=== PATIENT | female | born 1945 | race Caucasian/White ===

== ENCOUNTER 2017-08-21 21:39 | Emergency (ER) | payer MEDICARE ==
--- NOTE | 2017-08-22 00:02 | RAD ---
CHEST TWO VIEWS: History: Injury. Comparison: 11-16-15 FINDINGS: Lungs are clear. There is linear atelectasis in the left lung base. No pneumothorax or effusion. Mild levoscoliosis lumbar spine. Cardiac silhouette and mediastinal contours are similar. IMPRESSION: No acute intrathoracic abnormality. POS: [facility]
[2017-08-22] MEDS ORDERED: Ibuprofen 200 MG TAB ONE (00:04)
--- NOTE | 2017-08-22 00:04 | RAD ---
LEFT RIBS: History: Tripped and fell. Comparison: None. FINDINGS: Linear atelectasis left lung base. No displaced rib fracture. IMPRESSION: No displaced left sided rib fracture. POS: [facility]
[2017-08-22] MEDS ORDERED: HYDROcodone/Acetaminophen 5/325 mg Tablet ONE (00:53)
== END 2017-08-22 00:55 | disposition home or self-care (01) ==
LOC: SCSER 21:39
DX: S20.02XA Contusion of left breast, initial encounter (principal); Z79.899 Other long term (current) drug therapy; W01.0XXA Fall on same level from slipping, tripping and stumbling without subsequent striking against object, initial encounter; Y93.01 Activity, walking, marching and hiking
CPT/HCPCS: 71020

== ENCOUNTER 2018-02-15 15:06 | Emergency (ER) | payer MEDICARE ==
[2018-02-15 15:52] LABS: #Eosinphils 0.2 thou/uL (0.0-0.7); #Lymphocytes 2.1 thou/uL (1.20-3.40); #Monocytes 0.7 thou/uL (0.11-0.59); %Basophils 0.8 % (0.0-1.0); %Eosinophils 3.9 % (0.0-10.0); %Lymphocytes 34.4 % (21.0-51.0); %Monocytes 11.8 % (0.0-10.0); %Neutrophils 49.1 % (42.0-75.0); Hemoglobin 14.5 g/dL (12.0-16.0); Mean Corpuscular HGB CONC 33.7 g/dL (32.0-36.0); Mean Corpuscular Hemoglobin 32.5 pg (27.0-31.0); Mean Corpuscular Volume 96.5 fl (81.0-99.0); Mean Platelet Volume 6.7 fL (7.4-10.4); Platelet Count 302 thou/uL (130-400); RBC Distribution Width 11.7 % (11.5-14.5); Red Blood Cell (RBC) Count 4.47 mill/uL (4.20-5.40); White Blood Cell (WBC) Count 6.1 thou/uL (4.8-10.8)
--- NOTE | 2018-02-15 15:53 | RAD ---
FRONTAL VIEW CHEST: Indication: Chest pain. Comparison: 08-21-17 FINDINGS: There is vague rounded density at the inferior right chest which may relate to eventration of the rig ht hemidiaphragm versus diaphragmatic hernia. Lungs are mildly hyperinflated. There is no lobar conso lidation, effusion, or discrete pneumothorax. Cardiac silhouette is within normal limits of size for portable technique. There is vascular calcification. IMPRESSION: 1. No focal consolidation. 2. Additional details as above. POS: [facility]
[2018-02-15 16:09] LABS: Anion Gap 14 mmol/L (10-20); BUN (Urea Nitrogen) 22 mg/dL (9.8-20.1); Calc. Creatinine Clearance 0 mL/min (70-130); Calcium 9.4 mg/dL (7.8-10.44); Carbon Dioxide 24 mmol/L (23-31); Chloride 106 mmol/L (98-107); Estimated GFR-MDRD 66; Glucose 105 mg/dL (80-115); Sodium 140 mmol/L (136-145)
[2018-02-15 16:12] LABS: CKMB 1.5 ng/mL (0-6.6); Troponin I Less than 0.010 ng/mL (< 0.028)
== END 2018-02-15 16:34 | disposition home or self-care (01) ==
LOC: SCSER 15:06
DX: R07.9 Chest pain, unspecified (principal); J44.9 Chronic obstructive pulmonary disease, unspecified; Z79.899 Other long term (current) drug therapy
CPT/HCPCS: 71045; 80048; 82553; 84484; 85025; 93005

== ENCOUNTER 2018-04-18 12:57 | Outpatient (CLI) | payer MEDICARE ==
--- NOTE | 2018-04-18 13:25 | RAD ---
PA AND LATERAL CHEST: Date: 04/18/18 HISTORY: Dyspnea. COMPARISON: 04/05/17. FINDINGS: Lungs are hyperexpanded with flattening to the hemidiaphragms consistent with COPD. No infiltrative p rocess or pulmonary nodules. Atherosclerotic changes are seen in the aorta. Heart size within normal limits. IMPRESSION: Stable COPD change. POS: [facility]
== END 2018-04-18 12:58 | disposition home or self-care (01) ==
LOC: RAD 12:57
PROVIDERS: ATTEND Internal Medicine Pulmonary Disease
DX: R06.00 Dyspnea, unspecified (principal); J44.9 Chronic obstructive pulmonary disease, unspecified
CPT/HCPCS: 71046

== ENCOUNTER 2018-08-11 15:50 | Emergency (ER) | payer MEDICARE ==
[2018-08-11 17:27] LABS: #Eosinphils 0.1 thou/uL (0.0-0.7); #Lymphocytes 0.7 thou/uL (1.20-3.40); #Monocytes 0.9 thou/uL (0.11-0.59); #Neutrophils 5.1 thou/uL (1.40-6.50); %Basophils 0.7 % (0.0-1.0); %Lymphocytes 10.6 % (21.0-51.0); %Monocytes 13.4 % (0.0-10.0); %Neutrophils 73.3 % (42.0-75.0); Hemoglobin 14.4 g/dL (12.0-16.0); Mean Corpuscular HGB CONC 32.4 g/dL (32.0-36.0); Mean Corpuscular Hemoglobin 30.9 pg (27.0-31.0); Mean Corpuscular Volume 95.4 fL (78.0-98.0); Mean Platelet Volume 6.5 fL (7.4-10.4); Platelet Count 242 thou/uL (130-400); RBC Distribution Width 12.3 % (11.5-14.5); Red Blood Cell (RBC) Count 4.66 mill/uL (4.20-5.40)
--- NOTE | 2018-08-11 17:31 | RAD ---
TWO VIEWS CHEST: 08/11/18 COMPARISON: 08/21/17. HISTORY: Difficulty breathing, wheezing, COPD, emphysema. FINDINGS: There is increased linear interstitial density with pulmonary hyperinflation consistent with air trap ping. These findings are consistent with the provided history of COPD. There is atherosclerotic calc ification in the aortic arch. No pneumothorax, pleural fluid, focal consolidation, or alveolar edema. IMPRESSION: Chronic findings as detailed above. No lobar consolidation or alveolar edema. POS: [facility]
[2018-08-11] MEDS ORDERED: Sodium Chloride For Inhalation 0.9% 3 ML NEB ONE (17:43)
[2018-08-11 17:44] LABS: ALT (SGPT) 26 U/L (8-55); AST (SGOT) 36 U/L (5-34); Albumin 4.2 g/dL (3.4-4.8); Alkaline Phosphatase 71 U/L (40-150); Anion Gap 13 mmol/L (10-20); BUN (Urea Nitrogen) 10 mg/dL (9.8-20.1); Bilirubin, Total 0.4 mg/dL (0.2-1.2); Calc. Creatinine Clearance 0 mL/min (70-130); Calcium 9.6 mg/dL (7.8-10.44); Carbon Dioxide 24 mmol/L (23-31); Chloride 106 mmol/L (98-107); Estimated GFR-MDRD 74; Globulin 2.6 g/dL (2.4-3.5); Glucose 105 mg/dL (80-115); Protein, Total 6.8 g/dL (6.0-8.3); Sodium 139 mmol/L (136-145)
[2018-08-11 17:45] LABS: CKMB 1.5 ng/mL (0-6.6); Troponin I Less than 0.010 ng/mL (< 0.028)
[2018-08-11] MEDS ORDERED: Sterile Water 10 ML ONE (17:52)
== END 2018-08-11 19:11 | disposition home or self-care (01) ==
LOC: SCSER 15:50
DX: J44.1 Chronic obstructive pulmonary disease with (acute) exacerbation (principal); Z79.899 Other long term (current) drug therapy
CPT/HCPCS: 71046; 80053; 82553; 83880; 84484; 85025; 87804; 93005; 94640; A4216; J2920; J7620

== ENCOUNTER 2018-12-12 09:59 | Outpatient (CLI) | payer MEDICARE ==
--- NOTE | 2018-12-26 18:25 | MMO ---
Bilateral MAMMO Bilat Screen [facility]DI. CLINICAL HISTORY: Patient is 73 years old and is seen for screening. The patient has no family history of breast cancer. The patient has no personal history of cancer. VIEWS: The views performed were: bilateral craniocaudal and bilateral mediolateral oblique. FILMS COMPARED: The present examination has been compared to prior imaging studies performed at [facility] on 05/02/2012, 08/06/2013, 01/14/2016 and 11/24/2017. This study has been interpreted with the assistance of computer-aided detection. MAMMOGRAM FINDINGS: There are scattered fibroglandular densities. There are no suspicious masses, suspicious calcifications, or new areas of architectural distortion. IMPRESSION: THERE IS NO MAMMOGRAPHIC EVIDENCE OF MALIGNANCY. A ROUTINE FOLLOW-UP MAMMOGRAM IN 1 YEAR IS RECOMMENDED. ACR BI-RADS Category 1 - Negative MAMMOGRAPHY NOTE: 1. A negative mammogram report should not delay a biopsy if a dominant of clinically suspicious mass is present. 2. Approximately 10% to 15% of breast cancers are not detected by mammography. 3. Adenosis and dense breasts may obscure an underlying neoplasm.
== END 2018-12-12 10:00 | disposition home or self-care (01) ==
LOC: SCSMAMMO 09:59
PROVIDERS: ATTEND Family Medicine
DX: Z12.31 Encounter for screening mammogram for malignant neoplasm of breast (principal)
CPT/HCPCS: 77067

== ENCOUNTER 2018-12-12 10:01 | Outpatient (CLI) | payer MEDICARE ==
--- NOTE | 2018-12-12 11:34 | ULT ---
THYROID ULTRASOUND: Date: 12-12-18 Comparison: None. History: Abnormal thyroid function test. Technique: Multiplanar grayscale sonographic imaging of the thyroid gland obtained. FINDINGS: Thyroid isthmus measures 2 mm in AP dimension. Right lobe measures 2.2 x 1.2 x 0.7 cm and left lobe m easures 3.3 x 2.0 x 1.6 cm. There is no nodule noted in the thyroid isthmus or the right lobe of the thyroid gland. There is a dominant solid heterogeneously hypoechoic nodule with internal calcifications within the l eft lobe of the thyroid gland measuring at least 3.0 x 2.0 x 1.5 cm. IMPRESSION: TIRADS 5 lesion of left lobe of thyroid gland. Highly suspicious: fine needle aspiration advised. Code T
== END 2018-12-12 10:02 | disposition home or self-care (01) ==
LOC: SCSULT 10:01
PROVIDERS: ATTEND Family Medicine
DX: R94.6 Abnormal results of thyroid function studies (principal); E07.9 Disorder of thyroid, unspecified
CPT/HCPCS: 76536

== ENCOUNTER 2018-12-18 12:23 | Day surgery (SDC) | payer MEDICARE ==
[2018-12-17 11:55] VITALS: BMI 24.3
[2018-12-18] MEDS ORDERED: Sodium Bicarbonate 2.5 MEQ/5 ML VIAL ONE (12:31)
[2018-12-18] MEDS ORDERED: Lidocaine 1% PF 5 ML VIAL ONE (12:31)
--- NOTE | 2018-12-18 14:03 | ULT ---
FUltrasound-guided fine needle aspiration thyroid biopsy: HISTORY: TI-RADS Category 5 solitary left lobe thyroid nodule in 72-year-old female. TECHNIQUE: Signed informed consent obtained. Standard sterile technique used. The skin of the left anterior neck was prepped and draped in usual sterile fashion. 25-gauge needle was used applied buffered lidocaine superficially and deeply under ultrasound guidance. Another 25-gauge needle mounted on a 5 mL syring e was used to aspirate the contents of the dominant left thyroid nodule from anterolateral approach, and this was given to clinical laboratory scientist from pathology. Using separate 25-gauge needles and separ ate syringes, an additional 3 passes were made and given to the senior wind turbine technician. Patient tolerated the pro cedure well. No complications. IMPRESSION: Technically successful 25-gauge fine needle aspiration biopsy of the left thyroid nodule x4
[2018-12-18 14:13] VITALS: BP 122/65; TEMP 97.8
== END 2018-12-18 13:40 | disposition home or self-care (01) ==
LOC: ULT 12:23
PROVIDERS: ATTEND Family Medicine
PROC: 0GBG3ZX Excision of Left Thyroid Gland Lobe, Percutaneous Approach, Diagnostic (ICD-10-PCS; principal; 2018-12-18)
DX: E04.1 Nontoxic single thyroid nodule (principal); J44.9 Chronic obstructive pulmonary disease, unspecified; E78.00 Pure hypercholesterolemia, unspecified; Z87.891 Personal history of nicotine dependence; Z79.899 Other long term (current) drug therapy; Z88.0 Allergy status to penicillin; Z88.8 Allergy status to other drugs, medicaments and biological substances
CPT/HCPCS: 60100; 76942; 88173; 88305; J2001

== ENCOUNTER 2019-08-09 10:01 | Outpatient (CLI) | payer MEDICARE ==
--- NOTE | 2019-08-09 11:30 | ULT ---
Thyroid sonogram HISTORY: Thyroid mass. Koko thyroiditis. Follow-up. COMPARISON: 12/12/2018. FINDINGS: Right thyroid gland is 3.2 cm length with a normal appearance. Isthmus is 0.2 cm with a nor mal appearance. Left thyroid lobe measures up to 3.4 cm. The heterogeneous lobular mixed echogenicity well-circumscri bed mass with internal calcification measures 2.8 cm but 1.9 cm x 1.6 cm greatest diameters on today's exam (previously 3.0 x 2.0 x 1.5 cm greatest diameters). No new masses are apparent. IMPRESSION: Stable sonographic appearance of the dominant left thyroid lobe mass. No new abnormalitie s are apparent.
== END 2019-08-09 10:02 | disposition home or self-care (01) ==
LOC: SCSULT 10:01
PROVIDERS: ATTEND Otolaryngology Plastic Surgery within the Head & Neck
DX: E04.1 Nontoxic single thyroid nodule (principal)
CPT/HCPCS: 76536

== ENCOUNTER 2020-11-02 11:14 | Outpatient (CLI) | payer MEDICARE ==
--- NOTE | 2020-11-02 11:31 | RAD ---
XR Chest Pa Lat STANDARD History: Dyspnea Comparison: Radiograph September 05, 2020 Findings: Lungs are clear. No pneumothorax. No effusion. No airspace consolidation. Cardiac silhouette and mediastinal contours appear within normal limits. Mildly distended pulmonary v essels. Impression: No acute intrathoracic abnormality.
== END 2020-11-02 11:15 | disposition home or self-care (01) ==
LOC: BICRAD 11:14
PROVIDERS: ATTEND Internal Medicine Pulmonary Disease
DX: R06.00 Dyspnea, unspecified (principal)
CPT/HCPCS: 71046

== ENCOUNTER 2020-12-14 08:33 | Observation (INO) | payer MEDICARE ==
[2020-12-10 12:48] VITALS: BMI 24.7
[2020-12-14] MEDS ORDERED: Fentanyl 100 MCG/2 ML VIAL ONE (11:24)
[2020-12-14] MEDS ORDERED: Lidocaine 1% (PF) 30 ML VIAL ONE (11:25)
[2020-12-14] MEDS ORDERED: Heparin 10,000 UNITS/ 10 ML VIAL ONE ×2 (11:25→12:27)
[2020-12-14] MEDS ORDERED: Rocuronium Bromide 10 MG/ML (10ML VIAL) ONE (11:50)
[2020-12-14] MEDS ORDERED: Dexamethasone 20 MG/5 ML VIAL ONE (11:50)
[2020-12-14] MEDS ORDERED: Lidocaine 1% PF 5 ML VIAL ONE (11:50)
[2020-12-14] MEDS ORDERED: Glycopyrrolate 0.2 MG/ML 5 ML SYRINGE ONE (11:50)
[2020-12-14] MEDS ORDERED: PROPOFOL 200 MG/20 ML VIAL ONE (11:50)
[2020-12-14] MEDS ORDERED: Ondansetron PF 4 MG/2 ML Vial ONE (11:50)
[2020-12-14] MEDS ORDERED: PHENYLEPHRINE-NS 100 MCG/ML 10 ML SYRINGE ONE (11:50)
[2020-12-14] MEDS ORDERED: Ropivacaine 0.5% HCl/PF (150 MG/30 ML VIAL) ONE (11:50)
[2020-12-14] MEDS ORDERED: Isoproterenol 0.2 MG/1 ML AMP ONE (14:04)
[2020-12-14] MEDS ORDERED: Heparin 25,000 units/D5W 500 ML ONE (14:04)
[2020-12-14] MEDS ORDERED: Protamine Sulfate 50 MG/5 ML VIAL ONE (14:40)
[2020-12-14] MEDS ORDERED: Promethazine HCl 25 MG/ML VIAL SLOW IVP PRN (15:11)
[2020-12-14] MEDS ORDERED: Meperidine HCl/PF 25 MG/ML VIAL SLOW IVP PRN (15:11)
[2020-12-14] MEDS ORDERED: Ondansetron HCl/PF 4 MG/2 ML Vial IVP PRN (15:11)
[2020-12-14] MEDS ORDERED: Promethazine HCl 25 MG/ML VIAL IM PRN (15:11)
[2020-12-14] MEDS ORDERED: Albuterol Sulfate 2.5 mg/3 ml Neb NEB PRN (15:52)
[2020-12-14] MEDS ORDERED: Ketorolac Tromethamine 30 MG/ML VIAL IVP PRN ×2 (15:55→16:01)
[2020-12-14] MEDS ORDERED: Acetaminophen/Codeine 30-300mg Tablet PO PRN ×2 (16:00→16:01)
[2020-12-14] MEDS ORDERED: Promethazine HCl 25 MG/ML VIAL ONE (16:46)
[2020-12-14] MEDS ORDERED: Cepastat Lozenges 1 LOZ PO PRN (18:31)
[2020-12-14] MEDS: Apixaban 5 MG TAB PO SCH (22:09)
[2020-12-14] MEDS ORDERED: Ondansetron PF 4 MG/2 ML Vial IVP PRN (23:06)
[2020-12-15] MEDS: Acetaminophen 325 MG TAB PO PRN ×2 (00:02→08:06)
[2020-12-15] MEDS: Mometasone 200 MCG/Formoterol 5 MCG 120 PUFF INHALER INH SCH ×2 (00:34→06:25)
[2020-12-15] MEDS: Sucralfate 1 GM TAB PO SCH ×2 (06:57)
[2020-12-15] MEDS: Apixaban 5 MG TAB PO SCH (08:04)
[2020-12-15 08:24] VITALS: BP 107/56; TEMP 97.7
[2020-12-15] MEDS ORDERED: Cyanocobalamin (Vitamin B-12) 1,000 MCG TAB PO SCH (09:00)
[2020-12-15] MEDS ORDERED: Metoprolol Tartrate 25 MG TAB PO SCH (09:00)
[2020-12-15] MEDS ORDERED: Multivit, Therapeutic 1 TAB PO SCH (09:00)
[2020-12-15] MEDS ORDERED: Ascorbic Acid 500 mg Chewable Tablet PO SCH (09:00)
[2020-12-15] MEDS ORDERED: Calcium Carbonate 600 MG + Vit D TAB PO SCH (09:00)
== END 2020-12-15 10:20 | disposition home or self-care (01) ==
LOC: CCL 08:33 → 2SW 19:00
PROVIDERS: ADMIT Internal Medicine Cardiovascular Disease; ATTEND Internal Medicine Cardiovascular Disease
PROC: 02583ZZ Destruction of Conduction Mechanism, Percutaneous Approach (ICD-10-PCS; principal; 2020-12-14)
PROC: 4A023FZ Measurement of Cardiac Rhythm, Percutaneous Approach (ICD-10-PCS; 2020-12-14)
PROC: 4A0234Z Measurement of Cardiac Electrical Activity, Percutaneous Approach (ICD-10-PCS; 2020-12-14)
PROC: 02K83ZZ Map Conduction Mechanism, Percutaneous Approach (ICD-10-PCS; 2020-12-14)
DX: I48.0 Paroxysmal atrial fibrillation (principal); I48.92 Unspecified atrial flutter; I49.5 Sick sinus syndrome; J43.9 Emphysema, unspecified; E78.00 Pure hypercholesterolemia, unspecified; Z87.891 Personal history of nicotine dependence; Z79.01 Long term (current) use of anticoagulants; Z79.899 Other long term (current) drug therapy; Z88.0 Allergy status to penicillin; Z88.8 Allergy status to other drugs, medicaments and biological substances
CPT/HCPCS: 76942; 85347 ×2; 93005; 93613; 93622; 93623; 93656; 93657; 93662; C1732 ×3; C1759; G0378 ×2; 93010; J1100; J1644; J2001; J2405; J2550; J2704; J2720; J2795; J3010

== ENCOUNTER 2021-07-16 09:09 | Outpatient (CLI) | payer MEDICARE ==
[2021-07-16 10:35] LABS: Hemoglobin 14.3 g/dL (12.0-15.5); Mean Corpuscular HGB CONC 32.5 g/dL (32.0-36.0); Mean Corpuscular Hemoglobin 32.5 pg (27.0-33.0); Mean Platelet Volume 8.9 fl (7.4-10.4); Platelet Count 326 10x3/uL (150-450); RBC Distribution Width 12.8 % (11.5-14.5); White Blood Cell (WBC) Count 4.9 10x3/uL (3.5-10.5)
[2021-07-16 11:10] LABS: Anion Gap 13 mmol/L (10-20); BUN (Urea Nitrogen) 10 mg/dL (9.8-20.1); Calc. Creatinine Clearance 0 mL/min (70-130); Calcium 9.1 mg/dL (7.8-10.44); Carbon Dioxide 27 mmol/L (23-31); Chloride 105 mmol/L (98-107); Glucose 88 mg/dL (83-110); Potassium 4.5 mmol/L (3.5-5.1); Sodium 140 mmol/L (136-145)
[2021-07-16 11:23] LABS: INR-International Normal Ratio 0.9; PTT 27.9 sec (22.0-33.0); Prothrombin Time 10.3 sec (9.5-12.1)
[2021-07-16 21:10] LABS: SARS-CoV-2 PCR by NAA Not Detected (NotDetected)
== END 2021-07-16 09:10 | disposition home or self-care (01) ==
LOC: LABBT 09:09
PROVIDERS: ATTEND Internal Medicine Cardiovascular Disease
DX: Z01.812 Encounter for preprocedural laboratory examination (principal); Z20.822 Contact with and (suspected) exposure to COVID-19
CPT/HCPCS: 80048; 85027; 85610; 85730; U0003; U0005

== ENCOUNTER 2021-07-21 07:36 | Day surgery (SDC) | payer MEDICARE ==
[2021-07-19 14:10] VITALS: BMI 25.0
[2021-07-21] MEDS ORDERED: Heparin 25,000 units/D5W 500 ML ONE (09:26)
[2021-07-21] MEDS ORDERED: Heparin 10,000 UNITS/ 10 ML VIAL ONE (09:26)
[2021-07-21] MEDS ORDERED: Fentanyl 100 MCG/2 ML VIAL ONE (09:28)
[2021-07-21] MEDS ORDERED: Isoproterenol 0.2 MG/1 ML AMP ONE (09:28)
[2021-07-21] MEDS ORDERED: Glycopyrrolate 0.2 MG/ML 5 ML SYRINGE ONE (10:02)
[2021-07-21] MEDS ORDERED: PHENYLEPHRINE-NS 100 MCG/ML 10 ML SYRINGE ONE (10:02)
[2021-07-21] MEDS ORDERED: Dexamethasone 20 MG/5 ML VIAL ONE (10:02)
[2021-07-21] MEDS ORDERED: Ondansetron PF 4 MG/2 ML Vial ONE ×2 (10:02→14:05)
[2021-07-21] MEDS ORDERED: Lidocaine 1% PF 5 ML VIAL ONE (10:02)
[2021-07-21] MEDS ORDERED: Ketorolac Tromethamine 30 MG/ML VIAL ONE ×2 (10:02→15:34)
[2021-07-21] MEDS ORDERED: ePHEDrine 50 MG/ML VIAL ONE (10:02)
[2021-07-21] MEDS ORDERED: Rocuronium Bromide 10 MG/ML (10ML VIAL) ONE (10:02)
[2021-07-21] MEDS ORDERED: PROPOFOL 200 MG/20 ML VIAL ONE (10:02)
[2021-07-21] MEDS ORDERED: Phenylephrine 10 MG/ML VIAL ONE (10:19)
[2021-07-21] MEDS ORDERED: Protamine Sulfate 50 MG/5 ML VIAL ONE (13:21)
[2021-07-21] MEDS ORDERED: Promethazine HCl 25 MG/ML VIAL ONE (15:31)
[2021-07-22] MEDS ORDERED: Potassium Chloride 20 MEQ TAB PO PRN (08:36)
[2021-07-22] MEDS ORDERED: Furosemide 40 MG TAB PO PRN (08:36)
[2021-07-22] MEDS ORDERED: Sucralfate 1 GM TAB PO SCH (11:30)
[2021-07-27] MEDS ORDERED: Furosemide 40 MG TAB PO PRN (09:15)
== END 2021-07-21 18:12 | disposition home or self-care (01) ==
LOC: CCL 07:36
PROVIDERS: ATTEND Internal Medicine Cardiovascular Disease
PROC: 02583ZZ Destruction of Conduction Mechanism, Percutaneous Approach (ICD-10-PCS; principal; 2021-07-21)
PROC: 02K83ZZ Map Conduction Mechanism, Percutaneous Approach (ICD-10-PCS; 2021-07-21)
PROC: 4A023FZ Measurement of Cardiac Rhythm, Percutaneous Approach (ICD-10-PCS; 2021-07-21)
PROC: 4A0234Z Measurement of Cardiac Electrical Activity, Percutaneous Approach (ICD-10-PCS; 2021-07-21)
DX: I48.0 Paroxysmal atrial fibrillation (principal); I48.4 Atypical atrial flutter; I49.5 Sick sinus syndrome; J43.9 Emphysema, unspecified; E06.3 Autoimmune thyroiditis; E78.00 Pure hypercholesterolemia, unspecified; Z87.891 Personal history of nicotine dependence; Z79.01 Long term (current) use of anticoagulants; Z79.899 Other long term (current) drug therapy; Z88.0 Allergy status to penicillin; Z88.8 Allergy status to other drugs, medicaments and biological substances
CPT/HCPCS: 85347; 93005; 93613; 93622; 93623; 93656; 93657; 93662; C1732; C1759; C1884; J1100; J1644; J1885; J2370; J2405; J2550; J2704; J2720; J3010; J3490

== ENCOUNTER 2022-10-20 08:22 | Outpatient (CLI) | payer MEDICARE | END 2022-10-20 08:23 | disposition home or self-care (01) | LOC: RAD 08:22 | PROVIDERS: ATTEND Internal Medicine Critical Care Medicine | DX: R06.00 Dyspnea, unspecified (principal); R91.8 Other nonspecific abnormal finding of lung field; J98.4 Other disorders of lung; I70.0 Atherosclerosis of aorta | CPT/HCPCS: 71046 ==

== ENCOUNTER 2023-10-16 09:09 | Outpatient (CLI) | payer MEDICARE | END 2023-10-16 09:10 | disposition home or self-care (01) | LOC: RAD 09:09 | PROVIDERS: ATTEND Internal Medicine Critical Care Medicine | DX: R06.00 Dyspnea, unspecified (principal) | CPT/HCPCS: 71046 ==

== ENCOUNTER 2024-10-12 17:20 | Inpatient (IN) | payer MEDICARE ==
[~2024-10-12 17:20] MED LIST: Iopamidol-370 76% 500 ML MDV (1 ML CHARGE) ONE
[2024-10-12] MEDS ORDERED: Acetaminophen 325 MG TAB PO PRN (20:32)
[2024-10-12] MEDS ORDERED: Ondansetron PF 4 MG/2 ML Vial IVP PRN (20:32)
[2024-10-12] MEDS ORDERED: Ondansetron ODT 4 MG TAB PO PRN (20:32)
[2024-10-12] MEDS ORDERED: traMADol HCl 50 MG TAB PO PRN (20:32)
[2024-10-12 20:52] VITALS: BMI 25.0
[2024-10-12 21:08] LABS: Troponin I 1.596 ng/mL (< 0.028)
[2024-10-12] MEDS ORDERED: Ipratropium/Albuterol 3 ML NEB NEB PRN (21:40)
[2024-10-12 23:14] LABS: Influenza A by NAA Not Detected (NotDetected); Influenza B by NAA Not Detected (NotDetected); RSV by NAA Not Detected (NotDetected); SARS-CoV-2 NAA Rapid Test Not Detected (NotDetected)
[2024-10-13 04:41] LABS: #Basophils 0.03 10x3/uL (0.0-0.2); %Basophils 0.5 % (0.0-1.0); %Eosinophils 2.9 % (0.0-10.0); %Lymphocytes 31.9 % (21.0-51.0); %Monocytes 12.7 % (0.0-10.0); %Neutrophils 51.8 % (42.0-75.0); Hematocrit 39.7 % (36.0-47.0); Hemoglobin 13.1 g/dL (12.0-16.0); Mean Corpuscular Hemoglobin 32.8 pg (27.0-31.0); Mean Corpuscular Volume 99.3 fL (78.0-98.0); Mean Platelet Volume 8.9 fL (7.4-10.4); Platelet Count 258 10x3/uL (130-400); RBC Distribution Width 12.7 % (11.5-14.5)
[2024-10-13 05:08] LABS: ALT (SGPT) 14 U/L (8-55); AST (SGOT) 30 U/L (5-34); Albumin 3.1 g/dL (3.4-4.8); Alkaline Phosphatase 67 U/L (40-110); Anion Gap 10 mmol/L (10-20); BUN (Urea Nitrogen) 14 mg/dL (9.8-20.1); Bilirubin, Total 0.6 mg/dL (0.2-1.2); Calc. Creatinine Clearance 61 mL/min (70-130); Calcium 8.7 mg/dL (7.8-10.44); Carbon Dioxide 26 mmol/L (23-31); Chloride 108 mmol/L (98-107); Estimated GFR 88; Globulin 2.7 g/dL (2.4-3.5); Glucose 99 mg/dL (83-110); Potassium 4.3 mmol/L (3.5-5.1); Protein, Total 5.8 g/dL (5.8-8.1); Sodium 140 mmol/L (136-145)
[2024-10-13] MEDS: Arformoterol 15 MCG/2 ML NEB NEB SCH (08:25)
[2024-10-13] MEDS: Budesonide 0.25 MG/2 ML NEB INH SCH (08:26)
[2024-10-13] MEDS: Aspirin Chewable 81 MG TAB PO SCH (08:35)
[2024-10-13] MEDS: Pantoprazole 40 MG DR.TAB PO SCH (08:35)
[2024-10-13] MEDS: FLU (Fluad Triv) TS24-25 (65UP)/MF59C/PF 45 MCG/0.5 ML Syringe IM ONE (08:39)
[2024-10-13] MEDS: dilTIAZem CD 120 MG CAP PO SCH (16:42)
[2024-10-13] MEDS ORDERED: Metoprolol Tartrate 25 MG TAB PO SCH (21:00)
[2024-10-13] MEDS ORDERED: Apixaban 5 MG TAB PO SCH (21:00)
[2024-10-14 09:00] VITALS: TEMP 98.2
[2024-10-14 09:36] VITALS: BMI 25.0
[2024-10-14] MEDS ORDERED: Verapamil 5 MG/2 ML VIAL ONE (11:24)
[2024-10-14] MEDS ORDERED: Adenosine 6 mg (2 mL) VIAL ONE (11:24)
[2024-10-14] MEDS ORDERED: fentaNYL 50 mcg/mL 1 mL Vial ONE (11:24)
[2024-10-14] MEDS ORDERED: Midazolam HCl 2 mg/2 ml Vial ONE (11:24)
[2024-10-14] MEDS ORDERED: Heparin 10,000 UNITS/ 10 ML VIAL ONE (11:24)
[2024-10-14] MEDS ORDERED: Nitroglycerin 50 MG/250 ML BOT 250 ML ONE (11:24)
[2024-10-14] MEDS ORDERED: Iopamidol 370 76% 100 ML VIAL ONE (11:57)
[2024-10-14] MEDS: dilTIAZem CD 120 MG CAP PO SCH (16:50)
[2024-10-14 17:06] VITALS: BP 133/66
[2024-10-14] MEDS ORDERED: Sacubitril 24MG/Valsartan 26 MG TAB PO SCH (21:00)
== END 2024-10-14 20:08 | disposition home or self-care (01) | DRG 280 ==
LOC: OBS 17:20 → OBSVTOIN 10-14 08:44
PROVIDERS: ADMIT Internal Medicine; ATTEND Internal Medicine Critical Care Medicine
PROC: 4A023N7 Measurement of Cardiac Sampling and Pressure, Left Heart, Percutaneous Approach (ICD-10-PCS; principal; 2024-10-14)
PROC: B2151ZZ Fluoroscopy of Left Heart using Low Osmolar Contrast (ICD-10-PCS; 2024-10-14)
PROC: B2111ZZ Fluoroscopy of Multiple Coronary Arteries using Low Osmolar Contrast (ICD-10-PCS; 2024-10-14)
DX: I21.4 Non-ST elevation (NSTEMI) myocardial infarction (principal); I50.21 Acute systolic (congestive) heart failure; I20.1 Angina pectoris with documented spasm; I48.91 Unspecified atrial fibrillation; J44.9 Chronic obstructive pulmonary disease, unspecified; J43.9 Emphysema, unspecified; E78.5 Hyperlipidemia, unspecified; Z66 Do not resuscitate; Z87.891 Personal history of nicotine dependence; Z88.0 Allergy status to penicillin; Z88.8 Allergy status to other drugs, medicaments and biological substances
CPT/HCPCS: 0241U; 36415; 71045; 71275; 80053; 84145; 84484; 85025; 85347; 85610; 85730; 93005; 93306; 93458; 93799; 93970; 94640; 96372; 99152; 99153; C1769; C1887; C1894; G0378; J0153; J1644; J1650; J2250; J3010; J7626; Q9967

== ENCOUNTER 2025-05-12 11:27 | Outpatient (CLI) | payer MEDICARE | END 2025-05-12 11:28 | disposition home or self-care (01) | LOC: SCSRAD 11:27 | PROVIDERS: ATTEND Nurse Practitioner Family | DX: R07.81 Pleurodynia (principal) ==

== ENCOUNTER 2025-09-10 08:25 | Outpatient (CLI) | payer MEDICARE | END 2025-09-10 08:26 | disposition home or self-care (01) | LOC: SCSBT 08:25 | PROVIDERS: ATTEND Family Medicine | DX: M81.0 Age-related osteoporosis without current pathological fracture (principal) | CPT/HCPCS: 77080 ==